=== PATIENT | male | born 1950 | race Asian ===

== ENCOUNTER 2018-01-11 13:04 | Emergency (ER) | payer OTHER ==
[~2018-01-11] VITALS: Ht 162.6 cm; Wt 58.4 kg
[2018-01-11 15:20] VITALS: BP 165/108
== END 2018-01-11 15:44 | disposition home or self-care (01) ==
LOC: ED 15:38
DX: S06.0X0A Concussion without loss of consciousness, initial encounter (principal); G89.29 Other chronic pain; I10 Essential (primary) hypertension; W13.3XXA Fall through floor, initial encounter; Y93.89 Activity, other specified; Y92.69 Other specified industrial and construction area as the place of occurrence of the external cause; Y99.8 Other external cause status
CPT/HCPCS: 70450; 99284